=== PATIENT | male | born 1950 | race Caucasian/White ===

== ENCOUNTER 2016-03-28 11:15 | Day surgery (SDC) | payer BC, MEDICARE ==
[~2016-03-28 11:15] MED LIST: ACETAMINOPHEN 1000MG/100 ML PREMIX IV ONE; CEFAZOLIN 1 Gram 50 ML IVPB ONE
[2016-03-28 11:31] LABS: BASO % 0.5 % (0-6); EOS % 1.6 % (0-6); GRAN % 47.3 % (47-80); HEMATOCRIT 54.6 % (42.0-52.0); HEMOGLOBIN 14.9 gm/dl (14.0-18.0); LYMPH % 41.3 % (16-45); MEAN CELL VOLUME 106.6 fl (81-97); MEAN CORPUSCULAR HEMOGLOBIN 29.1 pg (27-33); MEAN CORPUSCULAR HGB CONC 27.3 g/dl (32-36); MEAN PLATELET VOLUME 11.2 fl (7.4-10.4); MONO % 9.3 % (0-9); PLATELET COUNT 288 K/uL (130-400); RED BLOOD COUNT 5.12 M/uL (4.40-5.70); RED CELL DISTRIBUTION WIDTH 14.4 % (11.5-14.5); WHITE BLOOD COUNT W/O DIFF 5.7 K/uL (4.2-12.2)
[2016-03-28 11:54] LABS: ANION GAP 8.8 (7-16); BLOOD UREA NITROGEN 17 mg/dL (9-20); CARBON DIOXIDE 26.2 mmol/L (22-30); CREATININE 1.1 mg/dL (0.66-1.25); EST GLOMERULAR FILTRATION RATE > 60 ml/min; GLUCOSE,RANDOM 116 mg/dL (70-110)
[2016-03-28] MEDS ORDERED: CLINDAMYCIN 600MG/50ML PREMIX 50 ML IVPB ONE (12:15)
[2016-03-28] MEDS ORDERED: TRAMADOL HCL 50 MG TABLET PO ONE (14:00)
[2016-03-28] MEDS ORDERED: BUPIVACAINE 0.25% W/EPI MPF 30ML VIAL IVP ONE (14:00)
[2016-03-28] MEDS ORDERED: PROPOFOL 10 MG/ML VIAL IV ONE (15:53)
[2016-03-28] MEDS ORDERED: EPHEDRINE SULFATE 50 MG/ML ML IV ONE (15:53)
[2016-03-28] MEDS ORDERED: ROCURONIUM BROMIDE 50MG/5ML VIAL IV ONE (15:53)
[2016-03-28] MEDS ORDERED: SEVOFLURANE 250 ML INH ONE (15:53)
[2016-03-28] MEDS ORDERED: HYDROMORPHONE HCL 2 MG/ML VIAL IV ONE (15:53)
[2016-03-28] MEDS ORDERED: NALOXONE 0.4 MG/1 ML VIAL IVP ONE (15:53)
--- NOTE | 2016-03-29 16:15 | Operative Note ---
OPERATIVE REPORT DATE OF PROCEDURE: 03/28/2016. SURGEON: Florentino Cortes D.O. REFERRING PHYSICIAN: Devon Alvarenga M.D. PREOPERATIVE DIAGNOSIS: REDUCIBLE RIGHT INGUINAL HERNIA. POSTOPERATIVE DIAGNOSIS: REDUCIBLE RIGHT INGUINAL HERNIA, DIRECT. PROCEDURE: Open right inguinal herniorrhaphy with mesh. INDICATIONS: The patient is a 65-year-old male. DESCRIPTION OF PROCEDURE: He was taken to the operating room and was placed in the supine position. General anesthesia was administered per the Department of Anesthesia. The patient's right inguinal region was shaved of hair and prepped and draped in the usual fashion. An oblique region was anesthetized with a total of 5.0 mL of 0.25% Sensorcaine with epinephrine. At this time a 4.0-cm oblique incision was made. This was carried down through Jimmie's layer to the aponeurosis external oblique. Once this was evaluated, it was noted to be very thin. There were actually already two holes noted in the external oblique aponeurosis. We did connect these two holes, and this was enlarged through the superficial inguinal ring in the direction of its fibers. At this time superior and inferior flaps were developed and a [place] was placed on the spermatic cord. This was dissected free from the underlying transversalis fascia. This was retracted laterally with a [place] drain. The floor was inspected and was noted to contain a direct hernia. The cremasteric fibers were taken down. There was no indirect hernia sac, but a small cord lipoma was noted. High ligation was done. At this time the floor was imbricated with 2-0 Vicryl. A right-sided ProGrip mesh was obtained. This was placed on the floor of the inguinal canal with excellent overlap of the pubic tubercle. Sutures went to the level of the pubic tubercle shelving portion of the inguinal ligament and the internal oblique aponeurosis. At this time the aponeurosis was closed over the cord with 2-0 Vicryl, Jimmie's layer was closed with 3-0 Vicryl, and the skin was closed with 4-0 Vicryl. He was taken to the recovery room in satisfactory condition. FINDINGS AT THE TIME OF SURGERY: Right inguinal hernia, direct, with accompanying cord lipoma. Florentino Cortes D.O. Date Time cc: Devon Alvarenga M.D. JOB NUMBER: [id number] MTDD
== END 2016-03-28 16:45 | disposition home or self-care (01) ==
LOC: SUR 11:15
PROVIDERS: ATTEND Surgery
DX: K40.90 Unilateral inguinal hernia, without obstruction or gangrene, not specified as recurrent (principal)
CPT/HCPCS: 85025; 80048; 93005; 93010; 49505; 00830; J1170; J2310